=== PATIENT | female | born 1970 | race African-American/Black ===

== ENCOUNTER 2016-09-01 17:28 | Emergency (ER) | payer MEDICAID, OTHER ==
[~2016-09-01] VITALS: Ht 170.2 cm; Wt 56.7 kg
[2016-09-01 18:16] LABS: Urine Bilirubin Negative (Negative); Urine Blood TRACE /uL (Negative); Urine Color Yellow (Yellow); Urine Glucose Normal (Normal); Urine Ketone Negative (Negative); Urine Nitrite Negative (Negative); Urine RBC 1 /hpf (0 - 4); Urine Squamous Epithelial Cell FEW /hpf (<5); Urine Urobilinogen Normal (Negative)
[2016-09-01 18:22] LABS: Basophils # (auto) 0 uL; DEFINITIVE VIEW TRANSMISSION; Eosinophils # (auto) 0 uL; Lymphocytes # (auto) 0.8 uL; Mean Platelet Volume 7.2 fL (7.4-10.4)
[2016-09-01 18:25] LABS: Basophils % (auto) 0.1 % (0.0-2.0); Lymphocytes % (auto) 28.4 % (10.0-50.0); Mean Corpuscular Hemoglobin 21.1 pg (28.0-32.0); Mean Corpuscular Volume 70.5 fL (80.0-100.0); Monocytes # (auto) 0.3 uL; Monocytes % (auto) 9.6 % (0.0-12.0); Neutrophils # (auto) 1.8 uL; Neutrophils % (auto) 60.9 % (37.0-80.0); Platelet Count (auto) 314 10^3/uL (140-450); Red Cell Distribution Width 19.5 % (11.6-16.0); White Blood Cell 2.9 10^3/uL (4.4-10.8)
[2016-09-01 18:33] LABS: Hemoglobin 5.7 g/dL (12.2-16.2)
[2016-09-01 18:43] LABS: Albumin 2.7 g/dL (3.4-5.0); BUN/Creatinine Ratio 7.1; Calcium 7.9 mg/dL (8.5-10.1); Potassium 3.1 mmol/L (3.5-5.1)
[2016-09-01 18:45] LABS: Bilirubin, Total 0.2 mg/dL (0.2-1.0); Total Protein 11.2 g/dL (6.4-8.2)
[2016-09-01 19:11] LABS: Anisocytosis Moderate; Platelet Estimate Adequate
[2016-09-01 19:12] LABS: Hypochromia Moderate; Microcytosis Moderate; Ovalocytes FEW
[2016-09-01] MEDS ORDERED: IOHEXOL 300 MG/ML 100ML BOTTLE IJ ONE (20:05)
[2016-09-01 20:49] LABS: Prothrombin Time 10.8 sec (9.37-12.3)
[2016-09-01] MEDS ORDERED: MORPHINE SULFATE 4 MG/ML SYRG IV ONE (22:00)
[2016-09-01] MEDS ORDERED: ONDANSETRON HCL 4 MG/2 ML VIAL IV ONE (22:00)
[2016-09-01] MEDS ORDERED: cefTRIAXone 1GM/50ML D5W 50 ML IV ONE (23:30)
[2016-09-01 23:46] VITALS: BP 150/99
[2016-09-02] MEDS ORDERED: HYDROmorphone HCL 2 MG/ML VL IV ONE
[2016-09-02 00:09] VITALS: BP 141/77
[2016-09-02 00:37] VITALS: BP 145/91
[2016-09-02 01:10] VITALS: BP 136/77
[2016-09-02 01:22] VITALS: BP 136/77
[2016-09-02] MEDS ORDERED: LORazepam 2MG/ML-1ML VIAL ONE (01:23)
== END 2016-09-01 22:49 | disposition short-term general hospital (02) ==
LOC: ER 17:39 → EDSEX 17:39 → ER 22:49
DX: R19.00 Intra-abdominal and pelvic swelling, mass and lump, unspecified site (principal)
CPT/HCPCS: 36415; 74177; 80053; 81001; 81025; 83690; 85025; 85610; 86850; 86900; 86901; 86920; 96365; 96375; 99285; J1170; J2270; J2405; J7030; P9016; Q9967; 36430